=== PATIENT | female | born 1955 | race Caucasian/White ===

== ENCOUNTER 2021-01-15 17:28 | Emergency (ER) | payer MEDICAID ==
[~2021-01-15] VITALS: Ht 162.6 cm; Wt 109.0 kg
[2021-01-15] MEDS ORDERED: CYCLOBENZAPRINE 10 MG TABLET. PO ONE (19:15)
[2021-01-15] MEDS ORDERED: HYDROcodone/APAP 5/325MG 1 TAB TABLET PO ONE (19:15)
--- NOTE | 2021-01-15 19:53 | RAD ---
Right shoulder 3 views. HISTORY: Pain 3 views were taken of the right shoulder. There is mild AC joint arthritis with mild hypertrophic spu rring and joint space narrowing. There is no fracture or dislocation or other acute osseous abnormali ty in the right shoulder. IMPRESSION: 1. Mild right AC joint arthritis otherwise negative right shoulder. Electronically signed by: Olayinka Ruiz MD (01/15/2021 7:50 PM) [facility]
--- NOTE | 2021-01-15 20:10 | RAD ---
Exam: CT cervical spine without contrast INDICATION: Neck pain TECHNIQUE: Sequential axial images through the cervical spine obtained without IV contrast. Sagittal and coronal reformatted images were reconstructed from the axial data and reviewed. Exposure: One or more of the following in the visualized dose reduction techniques were utilized for this examination: 1. Automated exposure control 2. Adjustment of the MA and/or KV according to patient size 3. Use of iterative of reconstructive technique Comparisons: None FINDINGS: Visualized cranial structures are unremarkable. Anterior cervical fusion hardware at C3-C4. Vertebral body heights and alignment are well-maintained. Fracture to the cervical spine is not identified. Mild multilevel spondylotic change in cervical spine with degenerative disc disease greatest at C4-C5 , C5-C6 and C6-C7. Mild bilateral facet arthropathy is also noted in the cervical spine. Visualized paraspinal soft tissues are unremarkable. IMPRESSION: Multilevel spondylotic change in cervical spine. No acute traumatic injury identified. Electronically signed by: Kiersten Espino MD (01/15/2021 8:08 PM) [facility]
--- NOTE | 2021-01-15 20:50 | PHYS DOC ---
Past Medical History Past Medical History: Hypertension Additional Past Medical Histor: subdural hematoma Past Surgical History: Appendectomy, Cholecystectomy, , Tonsillectomy, Other Additional Past Surgical Histo: cervical surgery, back surgery, hernia surgery, BCTR Smoking Status: Never Smoker Alcohol Use: None General Adult EDM: Chief Complaint: UPPER EXTREMITY PAIN HPI: HPI: Patient is a 65 year old female with history of hypertension who presents to the ED today complaining of of right shoulder pain rated as moderate worse on range of motion with numbness and tingling to the right pinky finger, symptoms began last week. Patient states symptoms had subsided and today they returned. She states she has chronic neck pain which is also making the shoulder pain worse. Patient denies any injury. Review of Systems: Review of Systems: Constitutional: Denies fever or chills. [] Eyes: Denies change in visual acuity. [] HENT: Denies nasal congestion or sore throat. [] Respiratory: Denies cough or shortness of breath. [] Cardiovascular: Denies chest pain or edema. [] GI: Denies abdominal pain, nausea, vomiting, bloody stools or diarrhea. [] : Denies dysuria. [] Musculoskeletal: Reports right shoulder pain radiating to the right upper extremity with numbness and tingling to the right pinky finger. Reports chronic neck pain Integument: Denies rash. [] Neurologic: Denies headache, focal weakness or sensory changes. [] Psychiatric: Denies depression or anxiety. [] Heart Score: C/O Chest Pain: N/A Risk Factors: Risk Factors: DM, Current or recent (<one month) smoker, HTN, HLP, family history of CAD, obesity. Risk Scores: Score 0 - 3: 2.5% MACE over next 6 weeks - Discharge Home Score 4 - 6: 20.3% MACE over next 6 weeks - Admit for Clinical Observation Score 7 - 10: 72.7% MACE over next 6 weeks - Early Invasive Strategies Current Medications: Current Medications Medications (Trade) Dose Ordered Sig/Rodrigue Start Time Stop Time Status Last Admin Dose Admin Acetaminophen/ Hydrocodone Bitart (Lortab 5/325) 1 tab 1X ONCE 01/15/21 19:15 01/15/21 19:30 DC 01/15/21 19:30 1 TAB Cyclobenzaprine HCl (Flexeril) 10 mg 1X ONCE 01/15/21 19:15 01/15/21 19:30 DC 01/15/21 19:30 10 MG Allergies: Allergies: Allergies Coded Allergies Type Severity Reaction Last Updated Verified adhesive tape Allergy Intermediate Rash 01/15/21 Yes senna Allergy Intermediate Rash 01/15/21 Yes Physical Exam: PE: Constitutional: Well developed, well nourished, no acute distress, non-toxic appearance. [] HENT: Normocephalic, atraumatic, bilateral external ears normal, oropharynx moist, no oral exudates, nose normal. [] Eyes: PERRLA, EOMI, conjunctiva normal, no discharge. [] Neck: Normal range of motion, no tenderness, supple, no stridor. [] Cardiovascular:Heart rate regular rhythm, no murmur [] Lungs & Thorax: Bilateral breath sounds clear to auscultation [] Abdomen: Bowel sounds normal, soft, no tenderness, no masses, no pulsatile masses. [] Skin: Warm, dry, no erythema, no rash. [] Back: No tenderness, no CVA tenderness. [] Extremities: Right upper extremity including shoulder elbow and hands with no obvious deformity. No tenderness on exam, patient has full range of motion to the right shoulder. Adequate radial, medial, ulnar sensation to the right fingers. +2 right radial pulse. Cap refill less than 2 seconds of right fingers Neurologic: Alert and oriented X 3, normal motor function, normal sensory function, no focal deficits noted. [] Psychologic: Flat affect Current Patient Data: Vital Signs: Vital Signs Date Time Temp Pulse Resp B/P (MAP) Pulse Ox O2 Delivery O2 Flow Rate FiO2 01/15/21 19:30 16 93 Room Air 01/15/21 18:34 98.4 81 170/105 (126) 98.4 EKG: EK interpreted by Dr. Milner sinus rhythm heart rate 77 no STEMI [] Radiology/Procedures: Radiology/Procedures: []PROCEDURE: CT CERVICAL SPINE WO CONTRAST Exam: CT cervical spine without contrast INDICATION: Neck pain TECHNIQUE: Sequential axial images through the cervical spine obtained without IV contrast. Sagittal and coronal reformatted images were reconstructed from the axial data and reviewed. Exposure: One or more of the following in the visualized dose reduction techniques were utilized for this examination: 1. Automated exposure control 2. Adjustment of the MA and/or KV according to patient size 3. Use of iterative of reconstructive technique Comparisons: None FINDINGS: Visualized cranial structures are unremarkable. Anterior cervical fusion hardware at C3-C4. Vertebral body heights and alignment are well-maintained. Fracture to the cervical spine is not identified. Mild multilevel spondylotic change in cervical spine with degenerative disc disease greatest at C4-C5, C5-C6 and C6-C7. Mild bilateral facet arthropathy is also noted in the cervical spine. Visualized paraspinal soft tissues are unremarkable. IMPRESSION: Multilevel spondylotic change in cervical spine. No acute traumatic injury identified. Electronically signed by: Kiersten Rachel MD (01/15/2021 8:08 PM) [facility] DICTATED and SIGNED BY: KIERSTEN RACHEL MD DATE: 01/15/210 0 PROCEDURE: SHOULDER 2+V RIGHT Right shoulder 3 views. HISTORY: Pain 3 views were taken of the right shoulder. There is mild AC joint arthritis with mild hypertrophic spurring and joint space narrowing. There is no fracture or dislocation or other acute osseous abnormality in the right shoulder. IMPRESSION: 1. Mild right AC joint arthritis otherwise negative right shoulder. Electronically signed by: Olayinka Ruiz MD (01/15/2021 7:50 PM) [facility] DICTATED and SIGNED BY: OLAYINKA RUIZ MD DATE: 01/15/[id number] 0 Course & Med Decision Making: Course & Med Decision Making Pertinent Labs and Imaging studies reviewed. (See chart for details) This a 65-year-old female patient presented to the ED today with right shoulder pain that began a week ago with numbness and tingling to the right pinky finger. Has history of chronic neck pain. No injuries. CT of the neck is negative for any acute findings, and right shoulder x-rays are negative for any acute findings Ktracs shows she is on Lyrica and Valium, when I asked patient what she takes Lyrica and Valium for she states for her muscle relaxers. She states she does not take them for pain. She is requesting something for pain. Offered her Lidoderm patches, she states she is allergic to any of the symptoms. Pre scription for gabapentin low-dose and Voltaren gel was sent to her pharmacy Her blood pressure was 170/105 on arrival to the ED with heart rate in the 70s, she states she is on amlodipine and has not taken it today. She was given clonidine in the ED. Emphasized to this patient the importance of taking her blood pressure medicines Abby Disclaimer: Abby Disclaimer: This electronic medical record was generated, in whole or in part, using a voice recognition dictation system. 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 DO follow up in one week Patient Instructions: Arthritis, Degenerative-Brief, Cervical Radiculopathy, [id number] Additional Instructions: You were seen for right shoulder pain, your right shoulder x-rays are negative for any acute findings you have arthritis in your shoulder. Your CT of the neck is negative for any acute findings. You can take [id number] Tylenol or Motrin as needed for your pain. You can follow-up with your own primary care doctor or the provided orthopedic doctor in 1 week if pain persists Scripts Diclofenac Sodium (Voltaren Arthritis Pain) 20 Gm Gel..gram. 5 GM TP BID, #100 MG Prov: KELY LEGER APRN 01/15/21 Gabapentin (GABAPENTIN ) 100 Mg Capsule 100 MG PO TID for NEUROGENIC PAIN, #20 CAP Prov: KELY LEGER APRN 01/15/21 KELY LEGER APRN Jan 15, 2021 20:50
[2021-01-15] MEDS ORDERED: DICL20GE TP (20:55)
[2021-01-15] MEDS ORDERED: GABA-585 PO (20:55)
[2021-01-15 20:57] VITALS: BP 154/70
[2021-01-15] MEDS ORDERED: cloNIDine HCL 0.1 MG TABLET PO ONE (21:00)
--- NOTE | 2021-01-15 23:53 | EKG ---
[facility] [address] [place] [address] Test Date: 2021-01-15 Test Time: 19:14:45 Pat Name: MAURO RYAN Department: Room: Gender: F Server: : 1955 Requested By: KELY LEGER Order Number: [id number] Reading MD: Marco Caal Measurements Intervals [place] Rate: 77 P: 70 NH: 186 QRS: 49 QRSD: 76 T: 52 QT: 376 QTc: 427 Interpretive Statements SINUS RHYTHM Electronically Signed On 01-16-2021 15:57:21 CDT by Marco Caal
== END 2021-01-15 21:12 | disposition home or self-care (01) ==
LOC: ER 17:28
DX: M54.12 Radiculopathy, cervical region (principal); M19.211 Secondary osteoarthritis, right shoulder; I10 Essential (primary) hypertension; Z88.8 Allergy status to other drugs, medicaments and biological substances
CPT/HCPCS: 72125; 73030; 93005; 99284